=== PATIENT | female | born 1945 | race Caucasian/White ===

== ENCOUNTER 2019-08-17 10:32 | Emergency (ER) | payer MEDICARE, SELFPAY ==
[2019-08-17 11:19] VITALS: BP 138/104; PULSE 99; RESP 18; TEMP 37.2; O2SAT 100
--- NOTE | 2019-08-17 11:32 | ED.GENADULT ---
HPI - General Adult General Chief complaint: Upper Respiratory Infection Stated complaint: Cold/flu Time Seen by Provider: 08/17/19 11:32 Source: patient and RN notes reviewed Mode of arrival: ambulatory Limitations: no limitations History of Present Illness HPI narrative: This patient's had a 10-day history of yellow-green nasal drainage with postnasal drip which is increased during the past 3 days with sinus pressure over the frontal and maxillary sinus areas bilaterally. She has had no ear pain or pain behind the ears. She has had no drainage from the ears. She has had no sore throat and no cough. She has had no fever. She is used OTC decongestant which has helped some with the symptoms. She has had no nausea, no vomiting, no diarrhea. She has had no hematuria, no dysuria, and no pyuria. She had no rashes. She has had no known exposure to anyone with strep throat, mono, influenza, bronchitis, pneumonia that she is aware of. Related Data Home Medications Medication Instructions Recorded Confirmed aspirin 08/17/19 duloxetine mg PO 08/17/19 gabapentin 08/17/19 metoprolol succinate PO 08/17/19 Allergies Allergy/AdvReac Type Severity Reaction Status Date / Time Penicillins Allergy Unknown Verified 11/11/18 10:16 Sulfa (Sulfonamide Allergy Unknown Verified 11/11/18 10:16 Antibiotics) Review of Systems Review of Systems: Narrative: CONSTITUTIONAL: Denies fever, chills, or sweats. Noncontributory except as pertains to the past medical history and history of present illness. EYES: Denies visual changes, redness, or discharge. ENT: Denies rhinorrhea, congestion, sore throat, or otalgia. CARDIOVASCULAR: Denies chest pain, palpitations, or edema. RESPIRATORY: Denies cough or dyspnea. GASTROINTESTINAL: Denies abdominal pain, nausea, vomiting, or diarrhea. GENITOURINARY: Denies dysuria or hematuria. SKIN: Denies rash or itching. MUSCULOSKELETAL: Denies back pain, joint pain, or myalgia. NEUROLOGIC: Denies headache, numbness, or weakness. PSYCHIATRIC: Denies anxiety or depression. PMFSH Comments At time of signature, I have reviewed and agree with nursing past medical, surgical, social, and family history.Please see nursing chart for further information. There is no relevant family history pertinent to the presenting complaint. Exam Narrative: Exam Narrative: GENERAL: Well-appearing, well-nourished, and in no acute distress. HEAD: Normocephalic, atraumatic. There is palpation tenderness over the bilateral frontal and maxillary sinus areas but not the mastoid sinus areas. EYES: PERRLA and EOMI. EARS: TM's clear bilaterally and the canals are clear. NOSE: Nares have edematous mucosal lining with purulent rhinorrhea with purulent postnasal drip. THROAT:Mucous membranes moist.Oropharynx Normal without erythema or exudates. NECK: Supple. No adenopathy of the neck, supraclavicular, axillary, or inguinal areas. RESPIRATORY: No respiratory distress. Airway patent. Respirations non-labored. The lungs are clear to A&P without any wheezing, no rales, no retractions, no use accessory muscles of respirations. Patient's not cyanotic and not dyspneic. The pulse ox on room air is 100% current temperature is 37.2 ?C. HEART: Regular rate and rhythm. No murmur heard. Normal peripheral pulses. ABDOMEN: Soft, nontender, nondistended, normal active bowel sounds.No masses. No rebound or guarding, No organomegaly. No CVA pain. No pain McBurney's point. Patient is a negative Vyas sign negative Rovsing sign. There are no pulsatile masses no audible bruits. EXTREMITIES: No clubbing/cyanosis/ edema. Normal strength & range of motion. SKIN: Warm, dry.Normal Color. No skin rash or skin lesions. Patient is well-nourished well-hydrated has moist mucous membranes and no tenting of the skin. NEURO: Alert and oriented. CN 2-12 grossly intact. No focal deficits. PSYCH: Normal mood and affect. Course Vital Signs Vital signs: Vital Signs
== END 2019-08-17 11:50 | disposition home or self-care (01) ==
PROVIDERS: Emergency Provider Family Medicine; PCP Internal Medicine
DX: J01.10 Acute frontal sinusitis, unspecified (principal); I10 Essential (primary) hypertension
CPT/HCPCS: 99213; G0463

== ENCOUNTER 2020-01-03 13:32 | Emergency (ER) | payer MEDICARE, SELFPAY ==
--- NOTE | ~2020-01-03 | XR_ITS ---
XR ankle LT min 3V 01/03/2020 13:55 Indication: Left ankle pain Procedure: 4 views left ankle Comparison: No prior studies for comparison. Findings: There is a nondisplaced fracture distal aspect of the fibula. Moderate soft tissue swelling . Ankle mortise intact. Talar dome within normal limits. Impression: 1: Nondisplaced fractures distal aspect of the left fibula including an oblique metaphyseal fracture as well as avulsion fractures distal tip of the fibula. Reviewed, dictated and finalized at location A. Impression: 1: Nondisplaced fractures distal aspect of the left fibula including an oblique metaphyseal fracture as well as avulsion fractures distal tip of the fibula.
[2020-01-03 13:42] VITALS: BP 128/90; PULSE 100; RESP 16; TEMP 37.3; O2SAT 98
--- NOTE | 2020-01-03 14:15 | ED.UPPEXIN ---
HPI - Extremity Injury (Upper) General Chief Complaint: Extremity Injury, Lower Stated Complaint: left ankle swollen/pain Time Seen by Provider: 01/03/20 13:53 Source: patient and RN notes reviewed Mode of arrival: ambulatory Limitations: no limitations History of Present Illness HPI narrative: Patient presents today complaining of pain and swelling to the left ankle. She slipped in a hole 2 weeks ago and twisted her ankle. She also twisted it again several days later. She has been ambulatory since the injury. Reports pain to the lateral ankle and states swelling has not improved. She denies pain at rest, but this increases with any weightbearing. She applied ice for the first 24 hours after injury, but no interventions since that time.. MD complaint: injury to: left Related Data Home Medications Medication Instructions Recorded Confirmed aspirin 08/17/19 duloxetine mg PO 08/17/19 gabapentin 08/17/19 metoprolol succinate PO 08/17/19 cholecalciferol (vitamin D3) 1,250 mcg PO WEEKLY 01/03/20 01/03/20 [Dialyvite Vitamin D3 Max] Allergies Allergy/AdvReac Type Severity Reaction Status Date / Time Penicillins Allergy Unknown Rash Verified 01/03/20 13:51 Sulfa (Sulfonamide Allergy Unknown Rash Verified 01/03/20 13:51 Antibiotics) Review of Systems Review of Systems: Narrative: CONSTITUTIONAL: Denies body aches, fever, chills, or sweats. EYES: Denies visual changes, redness, or discharge. ENT: Denies rhinorrhea, congestion, sore throat, or otalgia. CARDIOVASCULAR: Denies chest pain, palpitations, or edema. RESPIRATORY: Denies cough or dyspnea. GASTROINTESTINAL: Denies abdominal pain, nausea, vomiting, or diarrhea. GENITOURINARY: Denies dysuria or hematuria. SKIN: Denies rash, itching, or wounds. MUSCULOSKELETAL: Denies back pain, or myalgia.+ Left ankle injury NEUROLOGIC: Denies headache, numbness, tingling, or weakness. PSYCH: Denies depression or anxiety. PMFSH Comments At time of signature, I have reviewed and agree with nursing past medical, surgical, social and family history unless otherwise noted. Please see nursing chart for further information. There is no relevant family history pertinent to the presenting complaint Exam Narrative: Exam Narrative: GENERAL: Well-appearing, well-nourished, and in no acute distress. HEAD: Normocephalic, atraumatic. EYES: EOMI. No redness or drainage. Conjunctivae normal. ENT: Mucous membranes pink and moist. NECK: Normal AROM. CHEST: No respiratory distress. EXTREMITIES: Left ankle: Moderate swelling about the ankle that extends to the dorsum of the foot. Ecchymosis to the lateral ankle as well. Bony tenderness to the lateral ankle. Full range of motion with slight increased pain. Distal sensation intact. Capillary refill normal. Pedal pulse normal. SKIN: Warm, dry, no rash. Capillary refill normal. Normal skin turgor. NEURO: No focal deficits. Alert and oriented x3. Gait steady in flip-flops. PSYCH: Normal affect. No signs of depression or anxiety. Course Vital Signs Vital signs: Vital Signs Temperature 99.1 F 01/03/20 13:42 Pulse Rate 100 01/03/20 13:42 Respiratory Rate 16 01/03/20 13:42 Blood Pressure 128/90 01/03/20 13:42 Pulse Oximetry 98 01/03/20 13:42 Temperature 99.1 F 01/03/20 13:42 Pulse Rate 100 01/03/20 13:42 Respiratory Rate 16 01/03/20 13:42 Blood Pressure 128/90 01/03/20 13:42 Pulse Oximetry 98 01/03/20 13:42 Reviewed. Pt has been instructed to follow up with her PCP regarding her elevated blood pressure today. MDM - Extremity Injury (Upper) Differential Diagnosis Differential diagnosis: Likely other (Ankle fracture, ankle sprain, foot fracture, foot sprain) Imaging Data Radiologist's impression: ITS Impressions Ankle X-Ray 01/03/20 13:58 Impression: 1: Nondisplaced fractures distal aspect of the left fibula including an oblique metaphyseal fracture as well as avulsion fractures
== END 2020-01-03 14:24 | disposition home or self-care (01) ==
PROVIDERS: Emergency Provider Nurse Practitioner; PCP Internal Medicine
DX: S82.832A Other fracture of upper and lower end of left fibula, initial encounter for closed fracture (principal); I10 Essential (primary) hypertension; W18.42XA Slipping, tripping and stumbling without falling due to stepping into hole or opening, initial encounter
CPT/HCPCS: 73610; 99213; G0463